=== PATIENT | female | born 1990 | race Caucasian/White ===

== ENCOUNTER 2022-01-15 00:13 | Inpatient (IN) | payer OTHER ==
--- NOTE | 2022-01-15 01:29 | ED ---
Psych HPI - General Chief Complaint: Psychiatric Symptoms Stated Complaint: Mental Health Time Seen by Provider: 01/15/22 01:27 Source: patient, RN notes reviewed, old records reviewed Mode of arrival: ambulatory - History of Present Illness Initial Comments: This is a 31-year-old female to the emergency department for evaluation patient presents today for psychiatric evaluation and treatment. He does admit to currently feeling suicidal. MD Complaint: suicidal ideation, feels depressed -: unknown Associated Psychiatric Symptoms: depression, suicidal ideation, racing thoughts History of same: Yes Quality: constant Improves With: none Worsens With: none Treatments Prior to Arrival: placed on mental health hold If Self Harm: admits thoughts of self harm - Related Data Home Medications Medication Instructions Recorded Confirmed FLUoxetine HCL 40 mg PO HS 01/18/22 01/18/22 Previous Rx's Medication Instructions Recorded risperiDONE [RisperDAL] 1 mg PO BID 30 Days tab 01/17/22 Allergies Allergy/AdvReac Type Severity Reaction Status Date / Time avocado Allergy Unknown Rash/Hives Verified 01/18/22 20:11 Penicillins Allergy Rash/Hives Verified 01/18/22 20:11 Review of Systems ROS Statement: Those systems with pertinent positive or pertinent negative responses have been documented in the HPI. ROS Other: All systems not noted in ROS Statement are negative. Past Medical History Past Medical History: No Reported History History of Any Multi-Drug Resistant Organisms: None Reported Past Surgical History: No Surgical Hx Reported Past Psychological History: ADD/ADHD, Anxiety, Depression Smoking Status: Never smoker Past Alcohol Use History: Daily Past Drug Use History: Marijuana General Exam Limitations: no limitations General appearance: alert, in no apparent distress, anxious Head exam: Present: atraumatic, normocephalic, normal inspection Eye exam: Present: normal appearance, PERRL, EOMI. Absent: scleral icterus, conjunctival injection, periorbital swelling ENT exam: Present: normal exam, mucous membranes moist Neck exam: Present: normal inspection. Absent: tenderness, meningismus, lymphadenopathy Respiratory exam: Present: normal lung sounds bilaterally. Absent: respiratory distress, wheezes, rales, rhonchi, stridor Cardiovascular Exam: Present: regular rate, normal rhythm, normal heart sounds. Absent: systolic murmur, diastolic murmur, rubs, gallop, clicks GI/Abdominal exam: Present: soft, normal bowel sounds. Absent: distended, tenderness, guarding, rebound, rigid Extremities exam: Present: normal inspection, full ROM, normal capillary refill. Absent: tenderness, pedal edema, joint swelling, calf tenderness Back exam: Present: normal inspection Neurological exam: Present: alert, oriented X3, CN II-XII intact Psychiatric exam: Present: normal affect, normal mood Skin exam: Present: warm, dry, intact, normal color. Absent: rash Course Vital Signs 01/15/22 00:35 Temperature 97.5 F L Pulse Rate 90 Respiratory 18 Rate Blood Pressure 134/81 O2 Sat by Pulse 100 Oximetry - Reevaluation(s) Reevaluation #1: Medical records reviewed Medically clear for psychiatric evaluation Medical Decision Making - Medical Decision Making 31 female to the emergency department and seen here in the ER patient be admitted for psychiatric evaluation and treatment - Lab Data Result diagrams: 01/16/22 09:57 01/16/22 09:57 Lab Results 01/15/22 Range/Units 04:09 Coronavirus (PCR) Not Detected (Not Detectd) Disposition Clinical Impression: Suicidal ideation, Major depressive disorder, recurrent severe without psychotic features, Cannabis use disorder, moderate, dependence, Depression Disposition: TRANSFER TO PSYCH HOSP/UNIT Condition: Stable Time of Disposition: 05:00
[2022-01-15] MEDS ORDERED: MAG HYDROX/AL HYDROX/SIMETH 30 ML CUP PO PRN (04:27)
[2022-01-15] MEDS ORDERED: MAGNESIUM HYDROXIDE 2,400 MG/10 ML CUP PO PRN (04:27)
[2022-01-15] MEDS ORDERED: ACETAMINOPHEN TAB 325 MG TAB PO PRN (04:27)
[2022-01-15] MEDS ORDERED: HALOPERIDOL LACTATE 5 MG/ML 1 ML VIAL IM PRN (04:27)
[2022-01-15] MEDS ORDERED: LORazepam 2 MG/ML INJ IM PRN (04:30)
[2022-01-15] MEDS ORDERED: haloperidoL 5 MG TAB PO PRN (04:30)
[2022-01-15] MEDS ORDERED: traZODone HCL 50 MG TAB PO ONE (04:33)
[2022-01-15] MEDS ORDERED: risperiDONE 0.5 MG TAB PO STA (11:38)
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
--- NOTE | 2022-01-15 15:38 | P.MDCNMH ---
History of Present Illness H&P Date: 01/15/22 Chief Complaint: Medical evaluation/clearance 31-year-old woman with no significant medical history, not currently taking any medications present for mental health evaluation. Arben consulted for medical clearance/evaluation. At this time, patient denies any complaints of fevers, chills, nausea, vomiting, chest pain, palpitations, syncope, presyncope, cough, dyspnea, abdominal pain, constipation, diarrhea, dysuria, dyschezia, numbness/weakness of extremities. Review systems is positive for intermittent diffuse joint pains as well as intermittent back pain. Review systems is also positive for intermittent palpitations. Pulmonary evaluation, patient is afebrile, hemodynamically stable. Covid was negative. No images review. All Systems reviewed and pertinent positives and negatives noted in HPI, all other symptoms are negative Gen: in no apparent distress, resting comfortably in bed Eyes: PERRL, no scleral injection or icterus HENT: normocephalic, atraumatic, good hearing acuity, moist mucous membranes Neck: no tracheal deviation, full range of motion Resp: good air exchange, breathing comfortably with no accessory muscle use, no tactile fremitus, clear to auscultation bilaterally CVS: good distal perfusion x 4, no pitting edema, regular rate and rhythm GI: soft, tenderness to palpation in the epigastrium, periumbilical area, ND, no hepatosplenomegaly : no suprapubic tenderness, left-sided CVAT, ayoub catheter not present MSK: no clubbing, no cyanosis, no noted contractures of extremities Skin: no noted rashes, petechiae; temperature of skin is appropriate Neuro: moving all extremities without signs of weakness, CN II-XII intact Psych: cooperative, euthymic mood, insight and judgment intact Assessment/plan: Joint pain Back pain -Tylenol when necessary Palpitations -Patient counseled to ask nursing to obtain an EKG if she were to develop palpitations while she is hospitalized Depression -As per psychiatry Thank you for allowing us to participate in the care of this patient. We will follow peripherally. Do not hesitate to contact us with questions. Someone can be reached from the [facility] hospitalist group at all hours of the day at [phone]. Past Medical History Past Medical History: No Reported History History of Any Multi-Drug Resistant Organisms: None Reported Past Surgical History: No Surgical Hx Reported Past Psychological History: ADD/ADHD, Anxiety, Depression Smoking Status: Never smoker Past Alcohol Use History: Daily Past Drug Use History: Marijuana Medications and Allergies Allergies Allergy/AdvReac Type Severity Reaction Status Date / Time Penicillins Allergy Rash/Hives Verified 01/15/22 00:41 Physical Exam Osteopathic Statement: *. No significant issues noted on an osteopathic structural exam other than those noted in the History and Physical/Consult. Vitals: Vital Signs Temp Pulse Pulse Resp BP BP Pulse Ox 01/15/22 07:00 98.1 F 84 105/51 96 01/15/22 06:29 97.0 F L 90 20 112/72 01/15/22 00:35 97.5 F L 90 18 134/81 100 Intake and Output 01/15/22 01/15/22 01/15/22 06:59 14:59 22:59 Other: Weight 53.7 kg Cranial Nerve Examination - Cranial Nerves Cranial Nerve II- Optic: Intact Cranial Nerve III- Oculomotor: Intact Cranial Nerve IV- Trochlear: Intact Cranial Nerve V- Trigeminal: Intact Cranial Nerve - Abducens: Intact Cranial Nerve VII- Facial: Intact Cranial Nerve VIII- Auditory: Intact Cranial Nerve IX- Glossopharyngeal: Intact Cranial Nerve X- Vagus: Intact Cranial Nerve XI- Accessory: Intact Cranial Nerve XII- Hypoglossal: Intact
[2022-01-15 16:27] VITALS: BMI 18.0
[2022-01-15] MEDS: risperiDONE 0.5 MG TAB PO SCH (20:58)
[2022-01-15] MEDS ORDERED: FLUoxetine HCL 10 MG CAP PO SCH (21:00)
[2022-01-15] MEDS: LORazepam 1 MG TAB PO PRN (21:28)
[2022-01-16 07:06] VITALS: RESP 16
[2022-01-16] MEDS: risperiDONE 0.5 MG TAB PO SCH (08:47)
[2022-01-16 10:25] LABS: Basophils % (A) 0 %; Eosinophils % (A) 0 %; HCT 45.3 % (34.0-46.0); Lymphocytes % (A) 13 %; MCH 32.2 pg (25.0-35.0); MCHC 33.1 g/dL (31.0-37.0); MCV 97.2 fL (80.0-100.0); Mean Platelet Volume 6.8; Monocytes # (A) 0.4 k/uL (0-1.0); Monocytes % (A) 6 %; Neutrophils # (A) 6.3 k/uL (1.3-7.7); Neutrophils % (A) 80 %; Platelet Count 295 k/uL (150-450); RBC 4.66 m/uL (3.80-5.40); WBC 7.9 k/uL (3.8-10.6)
[2022-01-16 10:43] LABS: ALT 8 U/L (4-34); AST 23 U/L (14-36); African American GFR (CKD) >90 (>60 ml/min/1.73 sqM); Albumin 4.9 g/dL (3.5-5.0); Alkaline Phosphatase 56 U/L (38-126); Anion Gap 9 mmol/L; Blood Urea Nitrogen 15 mg/dL (7-17); Calcium 9.7 mg/dL (8.4-10.2); Carbon Dioxide 29 mmol/L (22-30); Chloride 99 mmol/L (98-107); Glucose 137 mg/dL (74-99); Non-African American GFR(CKD) >90 (>60 ml/min/1.73 sqM); Potassium 4.5 mmol/L (3.5-5.1); Sodium 137 mmol/L (137-145); Total Protein 7.5 g/dL (6.3-8.2)
--- NOTE | 2022-01-16 11:03 | P.PN ---
Progress Note - Text Progress Note Date: 01/16/22 Interval History: Patient was seen wandering the hallways and was directable and agreeable to speak with technical report writer in the office. The patient is currently reporting that they are feeling better. Patient is currently denying any suicidal or homicidal ideation, intention, and/or plan. The patient denies any auditory or visual hallucinations. Patient reports no paranoia or other delusions. Patient was that they have been thinking about making amends with people back in [facility]. They continue to endorse elevated anxiety. They have been adherent with their medications and denies any side effects at this time. Mental Status Exam: General Appearance: Patient appears to be stated age is alert, directable, and cooperative. Thin and tall build. Behavior: Patient is calmly seated without any agitated behavior. Speech: Patient's speech is fluent and nonpressured. Mood/Affect: Mood is improving mildly, affect is congruent and constricted. Suicidality/Homicidality: Patient denies having any suicidal or homicidal ideation intent or plan. Perceptions: Patient denies any visual hallucinations and denies any auditory hallucinations Though content/process: There is no evidence of any delusional thought content and thought process is linear and goal-directed. Memory and concentration: AOX3, grossly intact for the purposes of this session Judgment and insight: Improving mildly Vital Signs Temp 97.4 F L 01/16/22 06:39 Pulse 94 01/16/22 06:39 Resp 16 01/16/22 06:39 BP 113/53 01/16/22 06:39 Pulse Ox 96 01/15/22 07:00 FiO2 Intake & Output 01/15/22 01/16/22 01/16/22 18:59 06:59 18:59 Weight 53.7 kg Laboratory Results - Last 24 Hours 01/16/22 01/16/22 01/16/22 09:57 09:57 09:57 WBC 7.9 RBC 4.66 Hgb 15.0 Hct 45.3 MCV 97.2 MCH 32.2 MCHC 33.1 RDW 12.0 Plt Count 295 MPV 6.8 Neutrophils % 80 Lymphocytes % 13 Monocytes % 6 Eosinophils % 0 Basophils % 0 Neutrophils # 6.3 Lymphocytes # 1.0 Monocytes # 0.4 Eosinophils # 0.0 Basophils # 0.0 Sodium 137 Potassium 4.5 Chloride 99 Carbon Dioxide 29 Anion Gap 9 BUN 15 Creatinine 0.75 Est GFR (CKD-EPI)AfAm >90 Est GFR (CKD-EPI)NonAf >90 Glucose 137 H Calcium 9.7 Total Bilirubin 1.0 AST 23 ALT 8 Alkaline Phosphatase 56 Total Protein 7.5 Albumin 4.9 HCG, Qual Not Detected Assessment Major depressive disorder, recurrent, severe Cannabis use disorder Rule out autism spectrum disorder Plan: -Patient continues to meet criteria for inpatient psychiatric admission for symptom stabilization and safety. Patient has signed adult voluntary form and medication consent and was placed in patient's chart. -Medications: Increase Prozac to 40 mg at bedtime for depression/anxiety Increase Risperdal to 1 mg twice daily for augmentation/possible spectrum disorder dysregulation -When necessary Ativan and Haldol for agitation/aggression. -SW on board for discharge planning. Encouraged the patient to participate in milieu.
[2022-01-16 18:03] LABS: Chol/HDL Ratio 2.08 Ratio; LDL Cholesterol,Calculated 61.6 mg/dL (0.0-131.0); VLDL Calculation 12.02 mg/dL (5.00-40.00)
[2022-01-16] MEDS: LORazepam 1 MG TAB PO PRN (20:50)
[2022-01-16] MEDS: risperiDONE 1 MG TAB PO SCH (20:50)
[2022-01-16] MEDS ORDERED: FLUoxetine HCL 20 MG CAP PO SCH (21:00)
[2022-01-17 05:03] VITALS: BP 128/74; PULSE 113; TEMP 97.6
[2022-01-17] MEDS: risperiDONE 1 MG TAB PO SCH (08:09)
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
== END 2022-01-17 17:57 | disposition home or self-care (01) | DRG 885 ==
LOC: EC 00:13 → 3MHU 04:39
PROVIDERS: ADMIT Psychiatry & Neurology Psychiatry; ATTEND Psychiatry & Neurology Psychiatry
DX: F33.2 Major depressive disorder, recurrent severe without psychotic features (principal); R45.851 Suicidal ideations; F12.90 Cannabis use, unspecified, uncomplicated; F41.9 Anxiety disorder, unspecified; F80.9 Developmental disorder of speech and language, unspecified; F90.9 Attention-deficit hyperactivity disorder, unspecified type; Z56.0 Unemployment, unspecified; Z79.899 Other long term (current) drug therapy; Z20.822 Contact with and (suspected) exposure to COVID-19
CPT/HCPCS: 80053; 80061; 82075; 83036; 84443; 84703; 85025; 87635; 99285

== ENCOUNTER 2022-01-18 19:21 | Emergency (ER) | payer OTHER ==
[2022-01-18 19:28] VITALS: BP 134/87; PULSE 114; RESP 20; TEMP 98
--- NOTE | 2022-01-18 19:46 | ED ---
General Adult HPI - General Chief complaint: Psychiatric Symptoms Stated complaint: Mental Health Time Seen by Provider: 01/18/22 19:38 Source: patient, RN notes reviewed, old records reviewed Mode of arrival: ambulatory Limitations: no limitations - History of Present Illness Initial comments: 31-year-old female presenting for evaluation of increased depression and suicidal thoughts. Patient has not been sleeping. She was on a roof contemplating jumping. She was recently admitted to this institution for psychiatric evaluation and treatment. She has not been able to follow up as an outpatient. She continues to have thoughts and does not believe that her medication is working. - Related Data Home Medications Medication Instructions Recorded Confirmed FLUoxetine HCL 40 mg PO HS 01/18/22 01/18/22 Previous Rx's Medication Instructions Recorded risperiDONE [RisperDAL] 1 mg PO BID 30 Days tab 01/17/22 Allergies Allergy/AdvReac Type Severity Reaction Status Date / Time avocado Allergy Unknown Rash/Hives Verified 01/18/22 20:11 Penicillins Allergy Rash/Hives Verified 01/18/22 20:11 Review of Systems ROS Statement: Those systems with pertinent positive or pertinent negative responses have been documented in the HPI. ROS Other: All systems not noted in ROS Statement are negative. Past Medical History Past Medical History: No Reported History History of Any Multi-Drug Resistant Organisms: None Reported Past Surgical History: No Surgical Hx Reported Past Psychological History: ADD/ADHD, Anxiety, Depression Smoking Status: Never smoker Past Alcohol Use History: Daily Past Drug Use History: Marijuana General Exam Limitations: no limitations General appearance: alert, in no apparent distress Head exam: Present: atraumatic, normocephalic Eye exam: Present: normal appearance, PERRL ENT exam: Present: normal exam Neck exam: Present: normal inspection. Absent: tenderness, meningismus Respiratory exam: Present: normal lung sounds bilaterally. Absent: respiratory distress, wheezes, rales Cardiovascular Exam: Present: regular rate, normal rhythm GI/Abdominal exam: Present: soft. Absent: distended, tenderness, guarding Extremities exam: Present: normal inspection, normal capillary refill. Absent: pedal edema Neurological exam: Present: alert, oriented X3, CN II-XII intact. Absent: motor sensory deficit Psychiatric exam: Present: depressed, flat affect, suicidal ideation Skin exam: Present: warm, dry, intact. Absent: cyanosis, diaphoretic Course Vital Signs 01/18/22 19:26 Temperature 98 F Pulse Rate 114 H Respiratory 20 Rate Blood Pressure 134/87 O2 Sat by Pulse 97 Oximetry - Reevaluation(s) Reevaluation #1: 01/18/22 19:46 Patient cleared for EPS. Medical Decision Making - Medical Decision Making Patient's care is signed out turning shift change awaiting EPS evaluation. By review of the medical record it appears this patient was evaluated by EPS and felt to be stable for discharge. Disposition Clinical Impression: Depression Disposition: HOME SELF-CARE Condition: Fair Is patient prescribed a controlled substance at d/c from ED?: No Referrals: None,Stated [Primary Care Provider] - 1-2 days
[2022-01-18] MEDS ORDERED: LORazepam 1 MG TAB PO STA (23:13)
== END 2022-01-18 23:22 | disposition home or self-care (01) ==
LOC: EC 19:21
DX: F32.A Depression, unspecified (principal); F41.9 Anxiety disorder, unspecified; F90.9 Attention-deficit hyperactivity disorder, unspecified type; F12.90 Cannabis use, unspecified, uncomplicated; Z79.899 Other long term (current) drug therapy
CPT/HCPCS: 82075; 99284

== ENCOUNTER → 2022-02-14 | Outpatient (CLI) | payer OTHER ==
[2022-02-14 16:00] LABS: African American GFR (CKD) 136.7 (60.0-200.0); Blood Urea Nitrogen 14.8 mg/dL (9.0-27.0); Chol/HDL Ratio 3.45 Ratio; Glucose 83 mg/dL (70-110); LDL Cholesterol,Calculated 104.6 mg/dL (0.0-131.0)
== END | disposition home or self-care (01) ==
LOC: LABWHC1 08:45
PROVIDERS: ATTEND Psychiatry & Neurology Psychiatry
DX: F33.3 Major depressive disorder, recurrent, severe with psychotic symptoms (principal); Z79.899 Other long term (current) drug therapy
CPT/HCPCS: 36415; 80061; 80178; 82565; 82947; 83036; 84439; 84443; 84520

== ENCOUNTER → 2022-02-28 | Outpatient (CLI) | payer MEDICAID | END | disposition home or self-care (01) | LOC: LABWHC1 10:23 | PROVIDERS: ATTEND Psychiatry & Neurology Psychiatry | DX: Z53.9 Procedure and treatment not carried out, unspecified reason (principal) ==

== ENCOUNTER → 2022-03-04 | Outpatient (CLI) | payer MEDICAID | END | disposition home or self-care (01) | LOC: LABWHC1 10:39 | PROVIDERS: ATTEND Psychiatry & Neurology Psychiatry | DX: F33.3 Major depressive disorder, recurrent, severe with psychotic symptoms (principal); Z79.899 Other long term (current) drug therapy | CPT/HCPCS: 36415; 80178 ==